=== PATIENT | female | born 1995 | race Caucasian/White ===

== ENCOUNTER → 2016-11-18 | Outpatient (REF) | payer BC ==
[2016-11-18 16:26] LABS: PERCENT SATURATION 17.6 % (13.2-45.0)
== END ==
LOC: M LAB REF 13:19
PROVIDERS: ATTEND Nurse Practitioner Family
DX: R53.83 Other fatigue (principal)

== ENCOUNTER → 2017-06-25 | Outpatient (REF) | payer BC ==
[2017-06-25 17:32] LABS: ESTRADIOL 96.1 PG/ML; VITAMIN B12 LEVEL 310 PG/ML (247-911)
[2017-06-29 00:07] LABS: ENDOMYSIAL ABY IgA Negative (Negative)
[2017-06-29 00:07] LABS: TISSUE TRANSGLUTAMINASE IgA <2 U/mL (0-3)
== END ==
LOC: M LAB REF 16:41
DX: R53.83 Other fatigue (principal); R19.4 Change in bowel habit; Z79.3 Long term (current) use of hormonal contraceptives
CPT/HCPCS: 82607

== ENCOUNTER → 2017-10-09 | Outpatient (REF) | payer BC | LOC: M SFHCLERA 15:22 | DX: R21 Rash and other nonspecific skin eruption (principal) | CPT/HCPCS: 87880 ==